=== PATIENT | female | born 2000 | race Native Hawaiian/Other Pacific Islander ===

== ENCOUNTER 2021-11-06 16:12 | Emergency (ER) | payer OTHER ==
[2021-11-06 16:53] LABS: MUDS CUTOFF CONCENTRATIONS CUTOFF CONC BELOW:
[2021-11-06 16:55] LABS: BASOPHILS % (AUTO) 0.4 %; EOSINOPHILS % (AUTO) 0.4 %; HCT - HEMATOCRIT 37.6 % (37.0-47.0); HGB - HEMOGLOBIN 12.3 g/dL (12.0-16.0); LYMPHOCYTES # (AUTO) 1.6 10^3/uL (1.5-3.5); LYMPHOCYTES % (AUTO) 31.2 %; MEAN CORPUSCULAR HEMOGLOBIN 29.4 pg (27.0-31.0); MEAN CORPUSCULAR HGB CONC 32.7 g/dL (32.0-36.0); MEAN PLATELET VOLUME 9.5 fL (7.9-10.8); MONOCYTES # (AUTO) 0.2 10^3/uL (0.0-1.0); MONOCYTES % (AUTO) 4.4 %; NEUTROPHILS # (AUTO) 3.2 10^3/uL (1.5-6.6); NEUTROPHILS % (AUTO) 63.4 %; PLT - PLATELET COUNT 291 10^3/uL (130-450); RED BLOOD COUNT 4.18 10^6/uL (4.20-5.40); RED CELL DISTRIBUTION WIDTH 12.7 % (12.0-15.0)
[2021-11-06 16:58] LABS: BILIRUBIN,URINE NEGATIVE (NEGATIVE); GLUCOSE, URINE (UA) NEGATIVE (NEGATIVE); KETONES,URINE (UA) NEGATIVE (NEGATIVE); LEUKOCYTE ESTERASE, URINE NEGATIVE (NEGATIVE); NITRITE,URINE NEGATIVE (NEGATIVE); OCCULT BLOOD,URINE LARGE (NEGATIVE); PROTEIN,URINE NEGATIVE (NEGATIVE); UROBILINOGEN,URINE 0.2 (NORMAL) E.U./dL (NORMAL)
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
[2021-11-06 17:08] LABS: CLARITY,URINE CLEAR (CLEAR); HCG UR QUAL NEGATIVE
[2021-11-06 17:09] LABS: AMPHETAMINE SCREEN,URINE NEGATIVE (NEGATIVE); BACTERIA,URINE None Seen /HPF (None Seen); BARBITURATE SCREEN,UR NEGATIVE (NEGATIVE); BENZODIAZEPINES SCREEN, URINE NEGATIVE (NEGATIVE); COCAINE SCREEN URINE NEGATIVE (NEGATIVE); METHADONE SCREEN, URINE NEGATIVE (NEGATIVE); METHAMPHETAMINES SCREEN, URINE NEGATIVE (NEGATIVE); OPIATE SCREEN, URINE NEGATIVE (NEGATIVE); OXYCODONE SCREEN, URINE NEGATIVE (NEGATIVE); PROPOXYPHENE SCREEN, URINE NEGATIVE (NEGATIVE); SQUAMOUS EPITHELIAL CELL,UR FEW Squamous (<= Few); THC CANNABINOID SCREEN, URINE NEGATIVE (NEGATIVE); TRICYCLIC ANTIDEPRESSANT,URINE NEGATIVE (NEGATIVE)
[2021-11-06 17:10] LABS: ACETAMINOPHEN < 10 ug/mL (10-30); ALBUMIN 3.9 g/dL (3.2-5.5); ALBUMIN/GLOBULIN RATIO 1.2 (1.0-2.2); ALKALINE PHOSPHATASE 56 IU/L (42-121); ALT ALANINE AMINOTRANSFERASE 13 IU/L (10-60); AST ASPARTATE AMINOTRANSFERASE 16 IU/L (10-42); BILIRUBIN,TOTAL 0.4 mg/dL (0.2-1.0); BUN - BLOOD UREA NITROGEN 9 mg/dL (6-20); CALCIUM 8.9 mg/dL (8.5-10.3); CARBON DIOXIDE - CO2 25 mmol/L (21-32); CHLORIDE 108 mmol/L (101-111); CREATININE 0.7 mg/dL (0.4-1.0); ETOH - ETHANOL 119.7 mg/dL; GFR - MDRD 106 (>89); GLUCOSE 103 mg/dL (70-100); LIPASE 38 U/L (22-51); POTASSIUM 3.9 mmol/L (3.5-5.0); SALICYLATE < 6.0 mg/dL; SODIUM 139 mmol/L (135-145); TOTAL PROTEIN 7.2 g/dL (6.7-8.2)
[2021-11-06] MEDS ORDERED: MIDAZOLAM DRIP 50 MG/50 ML 50 MG/50 ML BAG IV SCH (22:00)
[2021-11-06 23:17] LABS: CORONAVIRUS 229E-RESP PCR NOT DETECTED; CORONAVIRUS HKU1-RESP PCR NOT DETECTED; CORONAVIRUS NL63-RESP PCR NOT DETECTED; CORONAVIRUS OC43-RESP PCR NOT DETECTED; HUMAN METAPNEUMOVIRUS NOT DETECTED; RHINOVIRUS/ENTEROVIRUS NOT DETECTED; SARS-CoV-2 -RESP PCR PANEL NOT DETECTED
[2021-11-06 23:18] LABS: B. PARAPERTUSSIS- RESP PCR PAN NOT DETECTED; B. PERTUSSIS- RESP PCR PANEL NOT DETECTED; C. PNEUMONIAE- RESP PCR PANEL NOT DETECTED; INFLUENZA A- RESP PCR PANEL NOT DETECTED; INFLUENZA B - RESP PCR PANEL NOT DETECTED; M. PNEUMONIAE- RESP PCR PANEL NOT DETECTED; PARAINFLUENZA VIRUS 1 NOT DETECTED; PARAINFLUENZA VIRUS 2 NOT DETECTED; PARAINFLUENZA VIRUS 3 NOT DETECTED; PARAINFLUENZA VIRUS 4 NOT DETECTED; RSV- RESP PCR PANEL NOT DETECTED
[2021-11-07 01:11] VITALS: BP 110/75
== END 2021-11-07 01:19 ==
LOC: ED 16:12
DX: F10.129 Alcohol abuse with intoxication, unspecified (principal); Y90.6 Blood alcohol level of 120-199 mg/100 ml; F32.89 Other specified depressive episodes; Z20.822 Contact with and (suspected) exposure to COVID-19
CPT/HCPCS: 0202U; 36415; 80053; 80306; 80307; 80320; 80329; 81001; 81025; 83690; 84443; 85025; 99283; 99285; 81003; 87086

== ENCOUNTER 2022-11-26 17:09 | Emergency (ER) | payer OTHER ==
[2022-11-26 17:27] VITALS: BP 114/58
--- NOTE | 2022-11-26 17:37 | ED Physician Documentation ---
PD HPI FEMALE - Stated complaint Stated Complaint: FEMALE - Chief complaint Chief Complaint: Wound - History obtained from History obtained from: Patient - History of Present Illness Timing - onset: How many days ago (2) Timing - duration: Days (2) Timing - details: Gradual onset, Still present Associated symptoms: Vaginal pain, Genital sore/lesion. No: Fever, Vaginal bleeding, Vaginal discharge, Dysuria Contributing factors: Other (The patient denies recent illness. She had noted onset of areas of pain and tenderness in the inner labia and introitus area consistent with her prior at HSV outbreak. She has had it once before. She does not have any prescriptions for antiviral medicines at this time.) Similar symptoms before: Diagnosis (HSV 2) Review of Systems Constitutional: denies: Fever, Chills Nose: denies: Rhinorrhea / runny nose, Congestion Throat: denies: Oral lesions / sores, Sore throat Respiratory: denies: Cough : reports: Dysuria (hurts to urinate but feeling on outer tissue.). denies: Discharge PD PAST MEDICAL HISTORY - Past Medical History Cardiovascular: None Endocrine/Autoimmune: None Psych: Depression, Anxiety - Past Surgical History Past Surgical History: No - Present Medications Home Medications: Ambulatory Orders Medication Instructions Recorded Confirmed Lidocaine Ointment 5% [Xylocaine 1 applic TOP QID PRN #35.44 gm 11/26/22 Ointment 5%] valACYclovir [Valtrex] 500 mg PO BID 5 Days #10 tablet 11/26/22 - Allergies Allergies/Adverse Reactions: Allergies Allergy/AdvReac Type Severity Reaction Status Date / Time No Known Drug Allergies Allergy Verified 11/26/22 17:27 - Social History Does the pt smoke?: No Smoking Status: Never smoker Does the pt drink ETOH?: Yes Does the pt have substance abuse?: No - Immunizations Immunizations are current?: Yes PD ED PE NORMAL - Vitals Vital signs reviewed: Yes - General General: Alert and oriented X 3, Well developed/nourished - Abdomen Abdomen: Soft, Non tender - Female Female : Deferred - Back Back: No CVA TTP - Derm Derm: Normal color, Warm and dry Results - Vitals Vitals: Vital Signs - 24 hr 11/26/22 17:21 Temperature 36.7 C Heart Rate 79 Respiratory 16 Rate Blood Pressure 114/58 L O2 Saturation 99 Oxygen O2 Source Room air PD Medical Decision Making - ED course Complexity details: considered differential (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 She states similar symptoms and lesions. 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 This is an antiviral medicine. I wrote a prescription refill for this in case of another outbreak in the near future. Tylenol or ibuprofen or both if needed for pains chills or fevers. You can use lidocaine topically to help with some of the discomfort of the sores. I would anticipate improvement over the next 2 to 3 days. Recheck if worsening or not improved. I sent your prescription to [facility] pharmacy. Discharge Date/Time: 11/26/22 18:16
[2022-11-26] MEDS ORDERED: IBUPROFEN 600 MG TABLET PO STA (17:52)
[2022-11-26] MEDS ORDERED: valACYclovir 500 MG TABLET PO STA (17:52)
== END 2022-11-26 18:16 | disposition home or self-care (01) ==
LOC: ED 17:09
DX: B00.9 Herpesviral infection, unspecified (principal)
CPT/HCPCS: 99282; 99284; A9270

== ENCOUNTER 2023-02-25 10:03 | Emergency (ER) | payer OTHER ==
[2023-02-25 10:13] VITALS: BP 113/71
[2023-02-25] MEDS ORDERED: BACITRACIN ZINC OINT 1 PACKET TOP STA (13:21)
--- NOTE | 2023-02-25 13:24 | ED Physician Documentation ---
History of Present Illness - Stated complaint Stated Complaint: NECK PX - Chief complaint Chief Complaint: Wound - Additonal information Additional information: 20-year-old female presents emergency department for evaluation of 4 to 5 days p ain in her left posterior neck. She got a superficial scratch on the back of her neck but over the last several days she developed some Blistering and increased pain. The blisters have ruptured and now she has scabs but there is some surrounding erythema and induration which is painful. No fevers. No history of similar. Tetanus is up-to-date. Review of Systems Skin: reports: Lesions PD PAST MEDICAL HISTORY - Past Medical History Past Medical History: Yes Cardiovascular: None Endocrine/Autoimmune: None Psych: Depression, Anxiety - Past Surgical History Past Surgical History: No - Present Medications Home Medications: Ambulatory Orders Medication Instructions Recorded Confirmed Lidocaine Ointment 5% [Xylocaine 1 applic TOP QID PRN #35.44 gm 11/26/22 Ointment 5%] valACYclovir [Valtrex] 500 mg PO BID 5 Days #10 tablet 11/26/22 cephALEXin [Keflex] 500 mg PO Q6H #28 cap 02/25/23 - Allergies Allergies/Adverse Reactions: Allergies Allergy/AdvReac Type Severity Reaction Status Date / Time No Known Drug Allergies Allergy Verified 02/25/23 10:08 - Social History Does the pt smoke?: No Smoking Status: Never smoker Does the pt drink ETOH?: Yes Does the pt have substance abuse?: No - Immunizations Immunizations are current?: Yes PD ED PE NORMAL - General General: Alert and oriented X 3, No acute distress - HEENT HEENT: Ears normal, Moist mucous membranes - Neck Neck: Other (3 cm scratch midline posterior neck that is subsequently scabbed over. There is some surrounding erythema and induration consistent with cellulitis. No drainage. Full range of motion of the neck in all planes.). No: No adenopathy (Small left posterior cervical lymphadenopathy. Shotty.) - Cardiac Cardiac: RRR, No murmur Results - Vitals Vitals: Vital Signs - 24 hr 02/25/23 10:08 Temperature 36.5 C Heart Rate 72 Respiratory 16 Rate Blood Pressure 113/71 O2 Saturation 100 Oxygen O2 Source Room air PD Medical Decision Making - ED course Complexity details: d/w patient ED course: 22-year-old female presents emergency department for evaluation of a scratch on her posterior neck that has subsequently become infected. She reports clear blisters that scabbed over. This may have been an impetigo but now with some surrounding cellulitis patient will be started on Keflex. She is advised warm compresses 2-3 times a day. Also advising bacitracin. We discussed the usual emergent return precautions for worsening symptoms Departure - Departure Disposition: 01 Home, Self Care Clinical Impression: Cellulitis of neck Condition: Stable Record reviewed to determine appropriate education?: Yes Instructions: Cellulitis Dc Prescriptions: cephALEXin [Keflex] 500 mg PO Q6H #28 cap Comments: You were seen today in the emergency department today because several days ago you got a scratch on the back of your neck which has subsequently become infected. This is called cellulitis. In order to treat it I am starting you on a course of antibiotics called cephalexin. You will take this 4 times a day for the next week. [place] I recommend warm compress across your neck for 10 minutes 2-3 times a day. Antibiotic ointment such as bacitracin should also be applied to the scratch 2-3 times a day. Return to the ER if you find that you are having worsening symptoms despite this treatment.
== END 2023-02-25 13:34 | disposition home or self-care (01) ==
LOC: ED 10:03
DX: L03.221 Cellulitis of neck (principal)
CPT/HCPCS: 99282; 99283; A9270

== ENCOUNTER 2023-03-29 11:18 | Emergency (ER) | payer OTHER ==
[2023-03-29 14:08] VITALS: BP 120/70
[2023-03-29] MEDS ORDERED: BUPIVACAINE 0.5% PF 10 ML VIAL SUBQ STA (14:27)
[2023-03-29] MEDS ORDERED: BACITRACIN ZINC OINT 1 PACKET TOP STA (14:59)
--- NOTE | 2023-03-29 15:02 | ED Physician Documentation ---
PD HPI LOWER EXT INJURY - Stated complaint Stated Complaint: TOE INJURY - Chief complaint Chief Complaint: Trauma Ext - History obtained from History obtained from: Patient - Additional information Additional information: Patient comes to the emergency department chief complaint of right great toenail avulsion. She states it happened yesterday and that she has gel nails on and she is walking, she caught her nail and pulled it up. The patient and her significant other tried to just put Vaseline on it and bandage it but the nail is sticking up too much and keeps catching on everything. Patient denies any other injuries or complaints. She is up-to-date on tetanus and states she got a tetanus shot when she joined the [employer]. No other complaints at this time. PD PAST MEDICAL HISTORY - Past Medical History Past Medical History: Yes Cardiovascular: None Respiratory: None Neuro: None Endocrine/Autoimmune: None GI: None QUALIFICATION ENGINEER: None : None HEENT: None Psych: Depression, Anxiety Musculoskeletal: None Derm: None - Past Surgical History Past Surgical History: No - Present Medications Home Medications: Ambulatory Orders Medication Instructions Recorded Confirmed No Known Home Medications 03/29/23 03/29/23 - Allergies Allergies/Adverse Reactions: Allergies Allergy/AdvReac Type Severity Reaction Status Date / Time No Known Drug Allergies Allergy Verified 03/29/23 11:56 - Social History Does the pt smoke?: No Smoking Status: Never smoker Does the pt drink ETOH?: Yes Does the pt have substance abuse?: No - Immunizations Immunizations are current?: Yes PD ED PE NORMAL - Vitals Vital signs reviewed: Yes - General General: Alert and oriented X 3, No acute distress, Well developed/nourished - HEENT HEENT: Atraumatic, PERRL, EOMI, Moist mucous membranes - Neck Neck: Supple, no meningeal sign - Cardiac Cardiac: Strong equal pulses - Respiratory Respiratory: No respiratory distress - Derm Derm: Normal color, Warm and dry, No rash, Other (Mostly a avulsed right great toenail which is still attached at the cuticle at the base of the germinal matrix. No nailbed laceration. No foreign bodies. No) - Extremities Extremities: No deformity, Other (No right great toe deformity.) - Neuro Neuro: Alert and oriented X 3 - Psych Psych: Normal mood, Normal affect Results - Vitals Vitals: Vital Signs - 24 hr 03/29/23 03/29/23 11:57 14:07 Temperature 36.3 C L 36.6 C Heart Rate 71 60 Respiratory 16 16 Rate Blood Pressure 103/76 120/70 O2 Saturation 100 98 Oxygen O2 Source Room air Procedures - General procedure General procedure: Right great toenail removal: A digital block was performed of the patient's right great toenail after which the nail was removed using traction with pickups. The nail removed easily and no nailbed injury was noted other than mild contusing. There is no active bleeding and patient tolerated procedure well. Procedure performed by emergency physician. - Regional nerve block - Minor Nerve block site: Digital - note digit(s) (Right great toenail) Right / left: Right Nerve block anesthesia: Marcaine 0.5% Nerve block aftercare: Excellent anesthesia, Patient tolerated well, No complications PD Medical Decision Making - ED course Complexity details: considered differential, d/w patient ED course: After digital block, toenail was removed easily with clamps. The patient was dressed with bacitracin and a nonstick membrane. We have discussed that we will take a few months for the toenail to grow back and that the patient may leave the nailbed open to air once it has scabbed over. Departure - Departure Disposition: 01 Home, Self Care Clinical Impression: Toenail avulsion Qualifiers: Encounter type: initial encounter Qualified Code(s): S91.209A - Unspecified open wound of unspecified toe(s) with damage to nail, initial encounter Condition: Stable Instructions: ED Avulsion Nail Complete Comments: Your toenail has been removed today. A digital block has been performed which will cause your toe to be numb for the next few hours. Please use care when walking until your toe has sensation, so you do not catch it again. You should keep the nailbed covered with a dressing until it dries and scabs over. At that point in time, if that it is comfortable to for you you may leave it open to air. We will take some months for your toenail to grow back and it may be somewhat lumpy but it should be intact, if you did not injure the specialized tissue that creates the nail.
== END 2023-03-29 15:13 | disposition home or self-care (01) ==
LOC: ED 11:18
DX: S91.201A Unspecified open wound of right great toe with damage to nail, initial encounter (principal); X58.XXXA Exposure to other specified factors, initial encounter; Y93.01 Activity, walking, marching and hiking
CPT/HCPCS: 11730; 99281